=== PATIENT | female | born 1960 | race Caucasian/White ===

== ENCOUNTER → 2023-10-05 | Day surgery (SDC) | payer OTHER ==
[~2023-10-05] MED LIST: AIMOVIG AU140 MG/1 M IM; ATORVASTATIN CA20 MG PO; BUSPIRONE HCL5 MG PO; ESTRADIOL1 MG TOP; GLYCOPYRROLATE INJ 0.2 MG/ML VIAL ONE; HYOSCYAMINE 0.125 MG TAB ONE; IMITREX6 MG/0.51 IM; LIDOCAINE HCL 2% LOCAL INJ 5 ML SDV VIAL INJ ONE; MAXALT10 MG PO; METHOCARBAMOL750 MG PO; MIDAZOLAM HCL 2 MG/2 ML VIAL ONE; MULTI-VITAMIN1 EACH PO; OS-CAL 500+D T1 EACH PO; PAMELOR10 MG PO; PROPOFOL IV EMULSION 10 MG/ML 20 ML VIAL ONE; PROPRANOLOL HCL10 MG PO; SERTRALINE HCL100 MG PO; VITAMIN B-12250 MC2 PO
[2023-10-05 14:58] VITALS: TEMP 97.4
[2023-10-05 15:25] VITALS: BP 109/71; PULSE 78; RESP 16; O2SAT 98
[2023-10-05] MEDS: HYOSCYAMINE 0.125 MG TAB PO ONE (15:44)
== END | disposition home or self-care (01) ==
LOC: OR 14:22
PROVIDERS: ATTEND Internal Medicine Gastroenterology
DX: R19.5 Other fecal abnormalities (principal); K63.89 Other specified diseases of intestine; K62.5 Hemorrhage of anus and rectum; K57.30 Diverticulosis of large intestine without perforation or abscess without bleeding; K64.1 Second degree hemorrhoids; E78.5 Hyperlipidemia, unspecified; G43.909 Migraine, unspecified, not intractable, without status migrainosus; F41.9 Anxiety disorder, unspecified; F32.A Depression, unspecified; Z88.6 Allergy status to analgesic agent; Z01.810 Encounter for preprocedural cardiovascular examination; Z79.899 Other long term (current) drug therapy; Z80.0 Family history of malignant neoplasm of digestive organs
CPT/HCPCS: 45378; 93005; J2001; J2250; J2704